=== PATIENT | male | born 1985 | race Two or more races ===

== ENCOUNTER 2024-05-15 15:39 | Emergency (ER) | payer MEDICAID, OTHER ==
[~2024-05-15] VITALS: Ht 175.3 cm; Wt 140.7 kg
[2024-05-15 15:49] VITALS: BP 157/85; PULSE 85; RESP 16; O2SAT 96
== END 2024-05-15 17:19 | disposition left against medical advice (07) ==
LOC: ER 15:45
DX: M54.89 Other dorsalgia (principal); M25.512 Pain in left shoulder; M54.2 Cervicalgia; Z53.21 Procedure and treatment not carried out due to patient leaving prior to being seen by health care provider